=== PATIENT | male | born 1990 | race Asian ===

== ENCOUNTER 2021-06-05 21:00 | Observation (INO) | payer OTHER ==
[~2021-06-05] VITALS: Ht 180.3 cm; Wt 97.7 kg
[2021-06-05] MEDS ORDERED: INFANRIX VACCINE SYRINGE (DIPHTH/TET/ACEL PERTUS PEDIATRIC) (CPT 90700) IM ONE (21:25)
[2021-06-05] MEDS ORDERED: ceFAZolin SOD 1 GM in D5W MINI-BAG PLUS 50 ML IV ONE (21:25)
[2021-06-05] MEDS ORDERED: TETANUS IMMUNE GLOBULIN (HUMAN) 250 UNITS/ML SYRINGE (J1670)(90389) IM ONE (21:25)
[2021-06-05] MEDS: MORPHINE 4 MG/ML 1ML VIAL/SYRINGE (J2270) IV PRN ×2 (21:41→22:19)
--- NOTE | 2021-06-05 22:24 | REPVR ---
PROCEDURE INFORMATION: Exam: XR Left Foot Exam date and time: 06/05/2021 9:41 PM Age: 31 years old Clinical indication: Pain; Foot; Left; Additional info: Open fracture of 1st metatarsal TECHNIQUE: Imaging protocol: XR Left foot. Views: 3 or more views. COMPARISON: No relevant prior studies available. FINDINGS: Bones/joints: Dorsal dislocation of the proximal phalanx of the great toe relative to the 1st metatarsal head. No acute fracture. Soft tissues: A bandage is noted about the 1st metatarsophalangeal joint. IMPRESSION: 1. Dorsal dislocation of the 1st metatarsophalangeal joint with surrounding bandage consistent with open injury. 2. Otherwise negative left foot. Electronically signed by: Fransisco Mcfadden On 06/05/2021 22:23:35 PM
[2021-06-05 22:50] LABS: RSV AMPLIFICATION NEGATIVE (NEGATIVE)
[2021-06-05] MEDS ORDERED: MOM 30ML SUSPENSION UDC PO PRN (23:00)
[2021-06-05] MEDS ORDERED: NS 1,000 ML IV SCH (23:00)
[2021-06-05] MEDS ORDERED: ACETAMINOPHEN TAB 650MG DOSE (2X325MG) PO PRN (23:00)
[2021-06-05] MEDS ORDERED: ceFAZolin SOD 2 GM in D5W MINI-BAG PLUS 50 ML IV SCH (23:00)
[2021-06-05] MEDS ORDERED: ceFAZolin SOD 2 GM in IV 1 EA IV SCH (23:00)
[2021-06-05] MEDS ORDERED: ONDANSETRON 4MG/2ML VIAL IV PRN (23:00)
[2021-06-05] MEDS ORDERED: NORCO, ANEXSIA 5/325MG TABLET (HYDROcodone/ACETAMINOPHEN) PO PRN ×2 (23:00)
[2021-06-05] MEDS ORDERED: BISACODYL 10 MG SUPP PR PRN (23:00)
[2021-06-05] MEDS ORDERED: MIDAZOLAM INJ 2MG/2ML VIAL (J2250 PER 1MG) As Ordered ONE (23:19)
[2021-06-05] MEDS ORDERED: fentaNYL 100 MCG/2 ML INJECTION (J3010) As Ordered ONE (23:20)
[2021-06-05] MEDS ORDERED: LIDOCAINE 2% 100MG/5ML SDV (FOR ANES.) As Ordered ONE (23:21)
[2021-06-05] MEDS ORDERED: propofoL 200 MG/20 ML VIAL As Ordered ONE (23:21)
[2021-06-05] MEDS ORDERED: ONDANSETRON 4MG/2ML VIAL As Ordered ONE (23:24)
[2021-06-05] MEDS ORDERED: ceFAZolin 2 GM/D5W 50 ML IV BAG (J0690 PER 500MG) As Ordered ONE (23:33)
[2021-06-05] MEDS ORDERED: HOME MED LIST COMPLETE! XX SCH (23:50)
[2021-06-05] MEDS ORDERED: BUPIVACAINE/EPIN 0.25% 30 ML VIAL As Ordered ONE (23:53)
[2021-06-05] MEDS ORDERED: ceFAZolin 1GM VIAL (J0690 PER 500MG) As Ordered ONE (23:57)
[2021-06-06] VITALS (7 sets, daily range): BP systolic 97–124; BP diastolic 48–74
[2021-06-06] MEDS ORDERED: KETOROLAC 60MG 2ML VIAL As Ordered ONE (00:07)
[2021-06-06] MEDS ORDERED: ACETAMINOPHEN TAB 650MG DOSE (2X325MG) PO PRN (00:50)
[2021-06-06] MEDS ORDERED: MORPHINE 2 MG/ML 1ML VIAL (J2270) IV PRN (00:50)
[2021-06-06] MEDS ORDERED: ONDANSETRON 4MG/2ML VIAL IV PRN ×2 (00:50→00:55)
[2021-06-06] MEDS ORDERED: oxyCODONE 5MG TAB PO PRN (00:50)
[2021-06-06] MEDS ORDERED: fentaNYL 100 MCG/2 ML INJECTION (J3010) IV PRN (00:50)
[2021-06-06] MEDS ORDERED: HYDROMORPHONE HCL 0.5 MG/ 0.5 ML SYRINGE (J1170 PER 1) IV PRN (00:50)
[2021-06-06] MEDS ORDERED: LR 1,000 ML IV SCH (00:50)
[2021-06-06] MEDS: LR 1,000 ML IV SCH ×3 (00:55→16:55)
[2021-06-06] MEDS: PERCOCET 5MG/325MG TAB PO PRN ×2 (06:17→15:21)
--- NOTE | 2021-06-06 07:11 | RO ---
OPERATIVE NOTE DATE OF OPERATION: 06/05/2021 PREOPERATIVE DIAGNOSIS: Left first metatarsophalangeal joint dislocation and open injury. POSTOPERATIVE DIAGNOSIS: Left first metatarsophalangeal joint dislocation and open injury. PLANNED PROCEDURE: Left first metatarsophalangeal joint closed reduction, possible pinning, irrigation and debridement. PROCEDURE PERFORMED: Left first metatarsophalangeal joint closed reduction, irrigation and debridement. SURGEON: Alex Freitas MD METAL FINISH INSPECTOR: None. ANESTHESIOLOGIST: Dr. Weiner TYPE ANESTHETIC: Sedation, local. ANESTHETIC: 4 mL 0.25% Marcaine with epinephrine. ESTIMATED BLOOD LOSS: 10 mL. COMPLICATIONS: None. OPERATIVE PREAMBLE: This 31-year-old man sustained an open dorsal dislocation of the first left metatarsophalangeal (MTP) joint. We discussed the pros and cons, risks and benefits of going ahead with closed reduction, possible pinning and irrigation. He wished to proceed. I marked the left lower extremity and proceeded to surgery. He had no further questions. DESCRIPTION OF PROCEDURE: The patient was brought to the operating theater. Placed supine on the operating room table. 2 grams IV Ancef was administered prior to the start of the case. Sedation was achieved by the assist of Dr. Weiner with propofol. Bump placed under the left hip. Left lower extremity prepped and draped with iodine-based prep solution allowing 3 minutes of prep solution drying time prior to draping. Preoperative timeout performed to confirm the site, patient and surgery. We began by performing a closed reduction of the MTP dislocation using gentle lower extremity traction. This led in nice and easily. This was stable to dorsal translation forces. I checked AP and lateral radiographs, confirmed no fracture, and concentric reduction of the joint. I then performed thorough irrigation and debridement of the plantar-based soft tissue laceration. There was no obvious penetration into the joint. I used three liters of normal saline with 3 grams of Ancef solution. I achieved meticulous hemostasis. I closed the subcutaneous tissue with 2-0 Vicryl suture and skin with 3-0 Ethilon suture. I used 4 mL of 0.25% Marcaine with epinephrine in and around the incision site as well as on the medial aspect of the MTP joint for a nerve block. I cleaned the wound thoroughly as well as any blood. No other obvious injuries to the foot or ankle. I removed any soft tissue contaminants. I then dressed the wound with adaptic, 4x4 gauze, ABD dressing and then a sterile cast padding followed by a dorsal-blocking plaster of dat splint over a sterile 4 inch Familia bandage and allowed this to fully harden. The case was terminated. The patient transferred off the operating room table and taken to the postanesthesia care unit in stable condition. All sponge, needle and instrument counts were correct. No complications. Estimated blood loss 10 mL. PLAN: Patient admitted overnight. IV Ancef, 2 grams IV, every 8 hours until discharge tomorrow when I round on the patient. He will be admitted. Elevation, strict nonweightbearing for at least three weeks' time. No heavy lifting for six weeks, and follow up in the office in one weeks' time, although he may need to be transferred to a separate orthopedic surgeon as [place] and this is also a worker's compensation plan as this is a work-related injury. He likely will be discharged home on oral antibiotics for at least 5-7 days due to this being an open injury as well as associated foot which are typically more contaminated wounds.
--- NOTE | 2021-06-06 07:55 | REP ---
INDICATION: OPEN REDUCTION OF TOE. COMPARISON: Comparison left foot radiograph 06/05/2021.. TECHNIQUE: Two views. 4.6 seconds of fluoroscopy time. FINDINGS: A sequence of 2 last image hold fluoroscopically obtained spot radiographs of the left forefoot document 1st MTP joint reduction. IMPRESSION: Procedural imaging. <Electronically signed by Kun Hays > 06/06/21 [id number]
[2021-06-06] MEDS: ceFAZolin SOD 2 GM in IV 1 EA IV SCH ×2 (08:23→15:03)
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
--- NOTE | 2021-06-06 14:46 | IPN ---
PROGRESS NOTE DATE: 06/06/2021 CHIEF COMPLAINT: Postop day one left metatarsal phalangeal during closed reduction and irrigation and debridement. HISTORY OF PRESENT ILLNESS: A 31-year-old man with a work related injury. Dorsal dislocation of his first MTP joint. Performed closed reduction late last evening. Irrigation and debridement and closure with splinting. He is doing well on the segovia. He has travel arrangements arranged for ground transportation back to [place], where he lives this evening. Other than that, is pain is settling down and he is here with his nurse. No concerns or complaints otherwise. PHYSICAL EXAMINATION: GENERAL APPEARANCE: A well appearing 31-year-old man in no acute distress. EXTREMITIES: Splint in situ, dry. Wiggling his toes appropriately. Normal sensation of the tip of the toes. Capillary refill is under 3 seconds. ASSESSMENT AND PLAN: A 31-year-old man who is doing well postop day one closed reduction left first MTP joint as well as irrigation and debridement, closure and splinted. He should be non-weight bearing. I explained to him to that. He can use his left heel for balance, but non-weight bearing on the toes with crutches or walker, depending on what he needs. He needs to follow up within the next week with an orthopedic surgeon in [place]. I have prescribed opiates and antibiotics, Keflex 100 mg p.o. four times daily for the next 5 days as well as a short prescription of postoperative pain medications and appropriate narcotic counseling and it appeared the patient understands. He had no further questions. [place]
--- NOTE | 2021-06-06 16:35 | REP ---
INDICATION: increased pain and new numbness. COMPARISON: None. TECHNIQUE: Three views FINDINGS: The dislocation of the proximal phalanx of the great toe noted on yesterday's examination has been satisfactorily reduced. There is no evidence of fracture of the great toe. There is a nondisplaced fracture of the navicular visualized on the lateral view. There is soft tissue bandage on the great toe consistent with soft tissue injury also soft tissue injury in the 2nd toe. IMPRESSION: Normal alignment of great toe after reduction of dislocated proximal phalanx. Nondisplaced fracture navicular. <Electronically signed by Elliott Velazquez > 06/06/21 [id number]
== END 2021-06-06 23:00 | disposition home or self-care (01) ==
LOC: M ED 21:00 → EDBD 21:00 → M ED INP 21:01 → ENRESERV 23:54 → M MS5PR 06-06 01:14
PROVIDERS: ADMIT Orthopaedic Surgery Sports Medicine; ATTEND Orthopaedic Surgery Sports Medicine
DX: S93.122A Dislocation of metatarsophalangeal joint of left great toe, initial encounter (principal); W23.0XXA Caught, crushed, jammed, or pinched between moving objects, initial encounter; Y92.89 Other specified places as the place of occurrence of the external cause; Y99.0 Civilian activity done for income or pay; Y93.89 Activity, other specified; F17.218 Nicotine dependence, cigarettes, with other nicotine-induced disorders
CPT/HCPCS: 11010; 28635; 73620; 73630; 76000; 87631; 90471; 90715; 96365; 96366; 96375; 96376; 99284; J0690; J1670; J1885; J2250; J2270; J2405; J3010